=== PATIENT | male | born 1990 | race Caucasian/White ===

== ENCOUNTER 2024-07-14 11:31 | Outpatient (CLI) | payer OTHER, SELFPAY ==
--- NOTE | 2024-07-14 11:42 | XR_ITS ---
FINAL REPORT CLINICAL HISTORY: ARTHRITIS FINDINGS: RIGHT SHOULDER Three views demonstrate no acute fracture or dislocation. The visualized joint spaces are normally aligned. The soft tissues are unremarkable. IMPRESSION: No acute process. Reviewed, Interpreted and Dictated by Kamar Anguiano MD Transcribed by Amelia Moya Authenticated and [facility]
== END 2024-07-14 23:59 | disposition home or self-care (01) ==
PROVIDERS: Visit Provider Chiropractor
DX: M25.511 Pain in right shoulder (principal); M19.90 Unspecified osteoarthritis, unspecified site
CPT/HCPCS: 73030